=== PATIENT | male | born 1995 | race Hispanic/Latino ===

== ENCOUNTER 2017-08-18 10:45 | Inpatient (IN) | payer SELFPAY ==
[2017-08-18] MEDS ORDERED: Ondansetron ODT 8 MG TAB ONE (13:34)
[2017-08-18] MEDS ORDERED: ISOVUE-370 76%-LOCM 1 ML ONE (13:43)
[2017-08-18 14:53] LABS: #Eosinphils 0.1 thou/uL (0.0-0.7); #Lymphocytes 1.5 thou/uL (1.20-3.40); #Monocytes 0.8 thou/uL (0.11-0.59); #Neutrophils 3.5 thou/uL (1.40-6.50); %Basophils 0.3 % (0.0-1.0); %Eosinophils 0.9 % (0.0-10.0); %Lymphocytes 25.5 % (21.0-51.0); %Monocytes 14.2 % (0.0-10.0); Hematocrit 39.1 % (42.0-52.0); Mean Platelet Volume 7.8 fL (7.4-10.4); Red Blood Cell (RBC) Count 4.81 mill/uL (4.70-6.10); White Blood Cell (WBC) Count 5.9 thou/uL (4.8-10.8)
[2017-08-18 14:57] LABS: Oxyhemoglobin 95.1 % (94.0-97.0); Sodium 135 mmol/L (135-148)
[2017-08-18 14:59] LABS: Mode NC; Vent NO
--- NOTE | 2017-08-18 15:11 | RAD ---
AP VIEW OF CHEST: Date: 08/18/17 HISTORY: Cough. FINDINGS: Comparison made with exams from 05/06/17, 05/08/17, and 05/10/17. AP view of chest demonstrates pulmonary vascular congestion. There is some asymmetric increased densi ty in the right pulmonary vessels compared to the left. Radiographic appearance of the chest is not s ignificantly changed since previous comparison radiographs from 05/08/17 and 05/10/17. No evidence of effusions seen. IMPRESSION: Area of asymmetric right mid lung density, not having significantly changed since the previous exam f rom 05/10/17. POS: [facility]
[2017-08-18 15:16] LABS: ALT (SGPT) 23 U/L (8-55); AST (SGOT) 28 U/L (5-34); Alkaline Phosphatase 61 U/L (40-150); Anion Gap 13 mmol/L (10-20); BUN (Urea Nitrogen) 12 mg/dL (8.9-20.6); Bilirubin, Total 0.5 mg/dL (0.2-1.2); Calc. Creatinine Clearance 0 mL/min (70-130); Calcium 8.4 mg/dL (7.8-10.44); Carbon Dioxide 26 mmol/L (22-29); Chloride 99 mmol/L (98-107); Estimated GFR-MDRD 87; Globulin 3.5 g/dL (2.4-3.5); Magnesium 2.4 mg/dL (1.6-2.6); Protein, Total 7.4 g/dL (6.0-8.3)
--- NOTE | 2017-08-18 15:57 | CT ---
CONTRAST ENHANCED CTA CHEST: Date: 08/18/17 HISTORY: 22-year-old male with history of vomiting, coughing, myalgias, fever. TECHNIQUE: Contrast enhanced CTA of chest performed. 2D and 3D reconstructed images performed on an independent 3D workstation. FINDINGS: Mediastinum demonstrates some mild subcarinal areas of lymph node enlargement. No evidence of filling defects seen in the pulmonary arteries to suggest pulmonary emboli. No evidence of hilar lymphadenop athy seen. Areas of patchy density seen in the right upper lobe, as well as posterior aspect of the left lower l obe compatible with areas of patchy pneumonia. Some mild areas of patchy density also seen in the ant erior aspect of the right lower lobe. Some minimal areas of patchy air space opacity also present in the posterior aspect of the right middle lobe. IMPRESSION: Multiple small areas of multilobar air space opacities concerning for pneumonia. Follow-up images to resolution recommended. POS: [facility]
[2017-08-18] MEDS ORDERED: Ondansetron HCl/PF 4 MG/2 ML Vial IVP PRN (15:58)
[2017-08-18] MEDS ORDERED: Acetaminophen 325 MG TAB PO PRN (15:58)
[2017-08-18] MEDS ORDERED: Senokot 8.6 MG TAB PO PRN (15:58)
[2017-08-18] MEDS ORDERED: Azithromycin 500 MG in Sodium Chloride 0.9% 250 ML 250 ML IVPB SCH ×3 (16:00→21:00)
[2017-08-18] MEDS ORDERED: cefTRIAXone\\ROCEPHIN 1 GM, Syringe 0.4 ML in Sterile Water 9.6 ML SLOW IVP SCH (18:30)
[2017-08-18] MEDS ORDERED: cefTRIAXone\\ROCEPHIN 1 GM in Sodium Chloride 0.9% 100 ML IVPB SCH (18:30)
[2017-08-18 19:38] VITALS: BMI 48.3
[2017-08-18] MEDS: Albuterol Sulfate 2.5 mg/3 ml Neb NEB SCH (20:54)
[2017-08-18] MEDS: Sodium Chloride 0.9% 1,000 ML IV SCH (21:03)
[2017-08-18] MEDS: guaiFENesin ER 600 MG TAB PO SCH (21:05)
[2017-08-18] MEDS: Famotidine 20 MG TAB PO SCH (21:05)
[2017-08-18] MEDS: Benzonatate 100 MG CAP PO SCH (21:05)
--- NOTE | 2017-08-18 21:27 | HP ---
REASON FOR ADMISSION: Pneumonia and SIRS. HISTORY OF PRESENT ILLNESS: The patient gives history of having coughing episodes along with nausea and vomiting along with body aches. This has been ongoing from . He thought he had flu and came to check it out in the ER. Last evening, he had a temperature of 102 degrees at home. This was confirmed with the mom at bedside. He has not taken his flu shot. On arrival here, he has had ches t x-ray and CT angio chest done, which confirms bilateral pneumonia. PAST MEDICAL/SURGICAL HISTORY: History of asthma during childhood, he has grown out of it, history o f patent ductus arteriosus repair done when he was [age] year old, sinus surgery. He has had a fish cher ne removed from his throat by Dr. Esqueda around 10 years back, and morbid obesity. CURRENT MEDICATIONS: None. ALLERGIES: No known drug allergies. PERSONAL HISTORY: Smokes off and on, but not a regular smoker, drinks alcohol on social occasions, b ut does not abuse drugs. 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 FAMILY HISTORY: Mother has history of diabetes and hypertension. He does not know much about his fa ther. REVIEW OF SYSTEMS: The following complete review of systems was negative, unless otherwise mentioned in the HPI or below: Constitutional: Weight loss or gain, ability to conduct usual activities. Skin: Rash, itching. Eyes: Double vision, pain. ENT/Mouth: Nose bleeding, neck stiffness, pain, tenderness. Cardiovascular: Palpitations, dyspnea on exertion, orthopnea. Respiratory: Shortness of breath, wheezing, cough, hemoptysis, fever or night sweats. Gastrointestinal: Poor appetite, abdominal pain, heartburn, nausea, vomiting, constipation, or diarrh ea. Genitourinary: Urgency, frequency, dysuria, nocturia. Musculoskeletal: Pain, swelling. Neurologic/Psychiatric: Anxiety, depression. Allergy/Immunologic: Skin rash, bleeding tendency. PHYSICAL EXAMINATION: GENERAL: The patient is a 22-year-old male, who is not in any acute distress at present. VITAL SIGNS: Blood pressure 114/70, pulse 88 per minute, respiratory rate 18 per minute, temperature 98.6 degrees Fahrenheit, and saturating 95% on room air. NECK: Supple, no elevated JVD. HEENT: Eyes: Extraocular muscles intact, pupils reactive to light. Oral cavity mucous membranes ar e dry. There is mild congestion in the posterior pharynx. No exudates. CARDIOVASCULAR: S1 and S2 heard. Regular rhythm. RESPIRATORY: Air entry 1+ bilateral. Scattered rhonchi plus bilateral. There is scattered wheezes as well bilateral, no rales. ABDOMEN: Soft, bowel sounds heard. No tenderness, rigidity, or guarding. EXTREMITIES: No peripheral edema or calf tenderness. VASCULAR SYSTEM: Peripheral pulses 2+ bilateral, no ischemic ulcerations or gangrene. CENTRAL NERVOUS SYSTEM: No gross focal deficits seen. Patient is alert, awake, oriented well. PSYCHIATRIC: The patient's mood is euthymic. No hallucinations or delusions. LABORATORY DATA AND X-RAY FINDINGS: EKG done shows normal sinus rhythm at 74 beats per minute. Bloo d gas done shows a pH of 7.41, pCO2 of 40, pO2 of 95. Sodium 134, BUN 12, creatinine 1.0, lactic aci d 1.0. Liver enzymes within normal limits. BNP is 25. Albumin is 3.9. Influenza A and B antigens are negative. CT angio chest done shows multiple small areas of multilobar airspace opacities concer alanis for pneumonia. There is no filling defect to suggest pulmonary embolus. D-dimer was 0.27. Whi te count of 5.9, H&H 12 and 39, platelet count is 248, MCV is 81 with 59% neutrophils. CLINICAL IMPRESSION AND PLAN: The patient will be admitted to telemetry for pneumonia, systemic infl ammatory response syndrome. The patient will be placed on azithromycin and ceftriaxone along with al buterol nebulizer q.6 hourly. He will be on normal saline at 100 mL per hour. The patient is obese and has childhood history of asthma as well. He has had prior history of patent ductus arteriosus re pair done. We will obtain an echo with 2D Doppler for LV function as well and wall motion along wit h, also to know about the valvular structures if he has any congenital abnormalities. Blood cultures have been obtained in the ER and we will obtain sputum culture as well. Respiratory viral panel, PC R will be obtained as well. We will continue to closely monitor him for any hemodynamic compromise.
[2017-08-19] MEDS: Albuterol Sulfate 2.5 mg/3 ml Neb NEB SCH ×4 (00:14→19:21)
[2017-08-19] MEDS: Guaifenesin DM 100-10/5 ML UDCUP PO PRN (02:58)
[2017-08-19] MEDS: Sodium Chloride 0.9% 1,000 ML IV SCH ×3 (02:58→21:14)
[2017-08-19 06:27] LABS: Anion Gap 11 mmol/L (10-20); BUN (Urea Nitrogen) 13 mg/dL (8.9-20.6); Calc. Creatinine Clearance 234 mL/min (70-130); Calcium 7.9 mg/dL (7.8-10.44); Carbon Dioxide 26 mmol/L (22-29); Chloride 99 mmol/L (98-107); Estimated GFR-MDRD 89
[2017-08-19 06:34] LABS: Band 4 % (5-11); Hematocrit 36.3 % (42.0-52.0); Neutrophil 55 % (42-75); Red Blood Cell (RBC) Count 4.45 mill/uL (4.70-6.10); White Blood Cell (WBC) Count 5.4 thou/uL (4.8-10.8)
[2017-08-19] MEDS ORDERED: FLU VACC QS2017-18 36 mo. & older 0.5 ML SYRINGE IM ONE (09:00)
[2017-08-19] MEDS: guaiFENesin ER 600 MG TAB PO SCH ×2 (09:25→20:09)
[2017-08-19] MEDS: Benzonatate 100 MG CAP PO SCH ×3 (09:25→20:09)
[2017-08-19] MEDS: Famotidine 20 MG TAB PO SCH ×2 (09:25→20:09)
[2017-08-19] MEDS: Enoxaparin Sodium 40 MG/0.4 ML SYRINGE SC SCH (09:26)
--- NOTE | 2017-08-19 10:59 | PDOC.PN ---
- Subjective Encounter Start Date: 08/19/17 Encounter Start Time: 07:45 Subjective: feels better, no sob -: is amb in hallway - Objective MAR Reviewed: Yes Vital Signs & Weight: Vital Signs (12 hours) Temp Pulse Resp BP Pulse Ox 08/19/17 08:50 98.3 F 82 20 121/58 L 95 08/19/17 08:14 92 L 08/19/17 08:12 78 18 92 L 08/19/17 04:00 97.6 F 72 15 115/57 L 95 08/19/17 02:56 98 08/19/17 00:14 82 18 98 I&O: 08/18/17 08/19/17 08/20/17 06:59 06:59 06:59 Intake Total 1050 Output Total 400 Balance 650 Result Diagrams: 08/19/17 05:14 08/19/17 05:14 Phys Exam - Physical Examination HEENT: PERRLA, moist MMs Neck: no JVD, supple Respiratory: no wheezing, no rales rhonchi++ Cardiovascular: RRR, no significant murmur Gastrointestinal: soft, non-tender, positive bowel sounds Musculoskeletal: no edema, pulses present Neurological: non-focal, moves all 4 limbs Psychiatric: A&O x 3 Dx/Plan (1) PNA (pneumonia) Code(s): J18.9 - PNEUMONIA, UNSPECIFIED ORGANISM Status: Acute Qualifiers: Pneumonia type: due to unspecified organism Laterality: bilateral (2) Obesity Code(s): E66.9 - OBESITY, UNSPECIFIED Status: Chronic Qualifiers: Obesity classification: adult class 3 (BMI >= 40) Body mass index: BMI 45.0 -49.9 (3) SIRS (systemic inflammatory response syndrome) Code(s): R65.10 - SIRS OF NON-INFECTIOUS ORIGIN W/O ACUTE ORGAN DYSFUNCTION Status: Acute - Plan on levaquin -: nebs, gentle iv hydration till am -: dc plan in am -: his meds have been faxed to pharmacy for his mom to pick it today * . Review of Systems - Medications/Allergies Allergies/Adverse Reactions: Allergies Allergy/AdvReac Type Severity Reaction Status Date / Time No Known Drug Allergies Allergy Verified 05/06/17 21:43 Medications: Current Medications Acetaminophen (Tylenol) 650 mg PO Q4H PRN PRN Reason: Headache/Fever or Pain Albuterol Sulfate (Ventolin) 2.5 mg NEB [id number] [facility] Last Admin: 08/19/17 08:12 Dose: 2.5 mg Benzonatate (Tessalon) 100 mg PO TID [facility] Last Admin: 08/19/17 09:25 Dose: 100 mg Enoxaparin Sodium (Lovenox) 40 mg SC 0900 [facility] Last Admin: 08/19/17 09:26 Dose: 40 mg Famotidine (Pepcid) 20 mg PO BID [facility] Last Admin: 08/19/17 09:25 Dose: 20 mg Guaifenesin (Mucinex) 600 mg PO Q12HR [facility] Last Admin: 08/19/17 09:25 Dose: 600 mg Guaifenesin/Dextromethorphan (Robitussin Dm) 15 ml PO Q4H PRN PRN Reason: Cough Last Admin: 08/19/17 02:58 Dose: 15 ml Sodium Chloride (Normal Saline 0.9%) 1,000 mls @ 100 mls/hr IV .Q10H [facility] Last Admin: 08/19/17 02:58 Dose: 1,000 mls Levofloxacin 750 mg/ Device 150 mls @ 100 mls/hr IVPB 2200 [facility] Last Admin: 08/18/17 22:24 Dose: 150 mls Ondansetron HCl (Zofran) 4 mg IVP Q6H PRN PRN Reason: Nausea/Vomiting Senna (Senokot) 2 tab PO HSPRN PRN PRN Reason: Constipation
[2017-08-20] MEDS: Albuterol Sulfate 2.5 mg/3 ml Neb NEB SCH ×2 (03:51→09:50)
[2017-08-20] MEDS: Guaifenesin DM 100-10/5 ML UDCUP PO PRN (04:00)
[2017-08-20] MEDS: Sodium Chloride 0.9% 1,000 ML IV SCH (08:13)
[2017-08-20] MEDS: Enoxaparin Sodium 40 MG/0.4 ML SYRINGE SC SCH (08:14)
[2017-08-20] MEDS: Famotidine 20 MG TAB PO SCH (08:14)
[2017-08-20] MEDS: Benzonatate 100 MG CAP PO SCH (08:14)
[2017-08-20] MEDS: guaiFENesin ER 600 MG TAB PO SCH (08:14)
[2017-08-20 09:05] VITALS: BP 138/85; TEMP 98.1
--- NOTE | 2017-08-20 10:10 | PDOC.PN ---
- Subjective Encounter Start Date: 08/20/17 Encounter Start Time: 06:45 Subjective: feels better, no sob -: is amb and eating well - Objective MAR Reviewed: Yes Vital Signs & Weight: Vital Signs (12 hours) Temp Pulse Resp BP Pulse Ox 08/20/17 09:00 98.1 F 78 16 138/85 95 08/20/17 08:00 98.1 F 78 16 08/20/17 05:36 98.4 F 71 18 131/70 94 L 08/20/17 01:05 98.1 F 72 18 131/78 95 I&O: 08/19/17 08/20/17 08/21/17 06:59 06:59 06:59 Intake Total 1050 2340 Output Total 400 600 Balance 650 1740 Result Diagrams: 08/19/17 05:14 08/19/17 05:14 Phys Exam - Physical Examination HEENT: PERRLA, moist MMs Neck: no JVD, supple Respiratory: no wheezing, no rales Cardiovascular: RRR, no significant murmur Gastrointestinal: soft, non-tender, positive bowel sounds Musculoskeletal: no edema, pulses present Neurological: non-focal, moves all 4 limbs Psychiatric: A&O x 3 Dx/Plan (1) PNA (pneumonia) Code(s): J18.9 - PNEUMONIA, UNSPECIFIED ORGANISM Status: Acute Qualifiers: Pneumonia type: due to unspecified organism Laterality: bilateral (2) Obesity Code(s): E66.9 - OBESITY, UNSPECIFIED Status: Chronic Qualifiers: Obesity classification: adult class 3 (BMI >= 40) Body mass index: BMI 45.0 -49.9 (3) SIRS (systemic inflammatory response syndrome) Code(s): R65.10 - SIRS OF NON-INFECTIOUS ORIGIN W/O ACUTE ORGAN DYSFUNCTION Status: Acute (4) Influenza A Code(s): J10.1 - FLU DUE TO OTH IDENT INFLUENZA VIRUS W OTH RESP MANIFEST Status: Acute - Plan his flu symptoms started on , no tamiflu -: to continue levaquin, alb inh prn -: dc pt home -: he needs outpt sleep study ?clyde * .
== END 2017-08-20 11:06 | disposition home or self-care (01) | DRG 194 ==
LOC: ERS 10:45 → ERHOLD 16:02 → 2NO 18:24 → T4-A 08-19 18:52
PROVIDERS: ADMIT Student in an Organized Health Care Education/Training Program; ATTEND Student in an Organized Health Care Education/Training Program
DX: J10.00 Influenza due to other identified influenza virus with unspecified type of pneumonia (principal); R65.10 Systemic inflammatory response syndrome (SIRS) of non-infectious origin without acute organ dysfunction; Z68.42 Body mass index [BMI] 45.0-49.9, adult; E66.9 Obesity, unspecified; F17.210 Nicotine dependence, cigarettes, uncomplicated; J45.909 Unspecified asthma, uncomplicated
CPT/HCPCS: 36415; 71010; 71275; 80048; 80053; 82805; 83605; 83735; 83880; 85025; 85379; 87040; 87633; 90471; 90682; 93005; 93306; 94640; A4216; G0008; J0456; J0696; J1650; J1956; J7050; J7611; Q2036

== ENCOUNTER 2018-10-25 15:23 | Emergency (ER) | payer BC ==
[~2018-10-25 15:23] MED LIST: ISOVUE-370 76%-LOCM 1 ML ONE
--- NOTE | 2018-10-25 16:32 | RAD ---
CHEST 2 VIEWS: Date: 10/25/18 HISTORY: Dyspnea. FINDINGS: No comparison. Cardiac silhouette is upper limits of normal in size. Pulmonary vasculature is slightly engorged with widespread reticulonodular interstitial prominence. Mediastinum is midline. No lobar consolidation, pneumothorax, or pleural fluid are apparent. IMPRESSION: Borderline cardiomegaly with mild pulmonary vascular congestion. Clinical correlation regarding other signs and symptoms of CHF required. POS: [facility]
[2018-10-25 16:33] LABS: Hemoglobin 10.6 g/dL (12.0-16.0); Mean Corpuscular HGB CONC 31.1 g/dL (32.0-36.0); Mean Corpuscular Volume 70.7 fL (78.0-98.0); Mean Platelet Volume 9.7 fL (7.4-10.4); Platelet Count 266 thou/uL (130-400); RBC Distribution Width 16.2 % (11.5-14.5)
[2018-10-25 16:50] LABS: ALT (SGPT) 33 U/L (8-55); AST (SGOT) 22 U/L (5-34); Albumin 3.8 g/dL (3.5-5.0); Alkaline Phosphatase 69 U/L (40-150); Anion Gap 12 mmol/L (10-20); BUN (Urea Nitrogen) 14 mg/dL (7.0-18.7); Bilirubin, Total 0.3 mg/dL (0.2-1.2); CK (CPK) 143 U/L (29-168); Calc. Creatinine Clearance 0 mL/min (70-130); Calcium 8.7 mg/dL (7.8-10.44); Carbon Dioxide 26 mmol/L (22-29); Chloride 100 mmol/L (98-107); Estimated GFR-MDRD 53; Globulin 3.3 g/dL (2.4-3.5); Glucose 111 mg/dL (70-105); Potassium 4.3 mmol/L (3.5-5.1); Protein, Total 7.1 g/dL (6.0-8.3); Sodium 134 mmol/L (136-145)
[2018-10-25 16:56] LABS: #Eosinphils 0.2 thou/uL (0.0-0.7); #Lymphocytes 1.7 thou/uL (1.20-3.40); #Monocytes 1.1 thou/uL (0.11-0.59); %Basophils 0.4 % (0.0-1.0); %Lymphocytes 19.1 % (21.0-51.0); %Monocytes 12.4 % (0.0-10.0); %Neutrophils 66.1 % (42.0-75.0); Anisocytosis SLIGHT = 6-15 cells (100X) (0-5/hpf); Hypochromia SLIGHT = 6-15 cells (100X) (0-5/hpf); MDiff Complete? YES; Microcytosis SLIGHT = 6-15 cells (100X) (0-5/hpf); Platelet Morphology Comment Appears Adequate
[2018-10-25] MEDS ORDERED: Furosemide 40 MG/4 ML VIAL ONE (19:04)
[2018-10-25] MEDS ORDERED: Furosemide 20 MG/2 ML VIAL ONE (19:43)
--- NOTE | 2018-10-25 21:23 | CT ---
CONTRAST ENHANCED CTA CHEST 10/25/18 HISTORY: Shortness of breath for one day, worst with working. Contrast enhanced CTA chest performed. 2D and 3D reconstructed images performed on an independent 3D workstation. CTA chest demonstrates the thoracic aorta to be unremarkable. FINDINGS/IMPRESSION: No evidence of pulmonary emboli seen. No evidence of mediastinal pathology seen. Moderate bilateral axillary lymphadenopathy is present. No definite evidence of mediastinal or hilar lymphadenopathy seen. There are diffuse areas of air sp maggie opacities in both upper lobes, more prominent on the right than on the left as well as both lower lobes and also some in the lateral aspect of the right middle lobe. This is compatible with extensiv e multilobar air space disease. Differential diagnosis includes pulmonary edema versus pneumonia. Cor relate with history. Multilobar lung areas of air space opacities compatible with pneumonia versus pu lmonary edema. POS: [facility]
== END 2018-10-25 20:56 | disposition home or self-care (01) ==
LOC: EDSEX → MERGE 15:23 → ERS 15:23
DX: J18.9 Pneumonia, unspecified organism (principal); J45.909 Unspecified asthma, uncomplicated; F17.210 Nicotine dependence, cigarettes, uncomplicated; F41.9 Anxiety disorder, unspecified; F32.9 Major depressive disorder, single episode, unspecified
CPT/HCPCS: 36415; 71046; 71275; 80053; 82550; 83880; 84484; 85025; 85379; 87804; 93005; 96374; J1940; J7620

== ENCOUNTER 2022-06-08 23:40 | Inpatient (IN) | payer BC, SELFPAY ==
[2022-06-08] MEDS ORDERED: Sodium Bicarb 50 MEQ/50 ML VIAL ONE (23:58)
[2022-06-09 00:36] LABS: Alcohol Less than 10 mg/dL (Less than 10); CK (CPK) 269 U/L (30-200); Lipase 40 U/L (8-78); Salicylate Less than 8.0 mg/dL (15.0-30.0)
[2022-06-09 00:37] LABS: ALT (SGPT) 27 U/L (8-55); AST (SGOT) 19 U/L (5-34); Albumin 4.2 g/dL (3.5-5.0); Alkaline Phosphatase 72 U/L (40-110); Anion Gap 14 mmol/L (10-20); BUN (Urea Nitrogen) 16 mg/dL (8.9-20.6); Bilirubin, Total 0.4 mg/dL (0.2-1.2); Calc. Creatinine Clearance 0 mL/min (70-130); Calcium 8.7 mg/dL (7.8-10.44); Carbon Dioxide 21 mmol/L (22-29); Chloride 104 mmol/L (98-107); Estimated GFR 84; Globulin 3.7 g/dL (2.4-3.5); Glucose 131 mg/dL (70-105); Potassium 3.4 mmol/L (3.5-5.1); Protein, Total 7.9 g/dL (6.0-8.3); Sodium 136 mmol/L (136-145)
[2022-06-09] MEDS ORDERED: Ondansetron PF 4 MG/2 ML Vial ONE (00:46)
[2022-06-09 01:05] LABS: Hemoglobin 14.8 g/dL (14.0-18.0); Mean Corpuscular HGB CONC 32.3 g/dL (32.0-36.0); Mean Corpuscular Hemoglobin 29.1 pg (27.0-31.0); Mean Corpuscular Volume 90.2 fL (78.0-98.0); Mean Platelet Volume 8.9 fL (7.4-10.4); Platelet Count 225 thou/uL (130-400); RBC Distribution Width 12.6 % (11.5-14.5); Red Blood Cell (RBC) Count 5.09 mill/uL (4.70-6.10); White Blood Cell (WBC) Count 16.2 thou/uL (4.8-10.8)
[2022-06-09 01:06] LABS: Band 3 % (5-11); Lymphocytes 38 % (21-51); MDiff Complete? YES; Monocytes 2 % (0-10); Neutrophil 47 % (42-75); Platelet Morphology Comment Appears Adequate; RBC Morphology Normal; Reactive Lymphocytes 10 % (0-10)
[2022-06-09] MEDS ORDERED: DEXTROSE 5% IV SCH (01:30)
[2022-06-09] MEDS ORDERED: Acetylcysteine 20% (200mg/mL) 15,000 MG in Dextrose 5% in Water 200 ML IV SCH (01:30)
[2022-06-09] MEDS ORDERED: WATER IV SCH (01:30)
[2022-06-09] MEDS ORDERED: ACETYLCYSTEINE IV SCH (01:30)
[2022-06-09 01:40] LABS: SARS-CoV-2 NAA Rapid Test Not Detected (NotDetected)
[2022-06-09] MEDS ORDERED: Ondansetron PF 4 MG/2 ML Vial IVP PRN (02:45)
[2022-06-09] MEDS ORDERED: Ondansetron ODT 4 MG TAB PO PRN (02:45)
[2022-06-09] MEDS ORDERED: diphenhydrAMINE 25 MG CAP PO PRN (02:45)
[2022-06-09] MEDS ORDERED: diphenhydrAMINE 50 MG/ML VIAL IVP PRN (02:45)
[2022-06-09] MEDS ORDERED: Acetylcysteine 20% (200mg/mL) 5,000 MG in Dextrose 5% in Water 500 ML IV SCH (03:00)
[2022-06-09] MEDS ORDERED: Dextrose 50% Abboject 50 ML SYRINGE SLOW IVP PRN (03:05)
[2022-06-09] MEDS ORDERED: Dextrose 5% in Water 1,000 ML IV PRN (03:05)
[2022-06-09 03:06] VITALS: BMI 53.1
[2022-06-09] MEDS: Sodium Bicarbonate 150 MEQ in Dextrose 5% in Water 1,000 ML IV SCH ×2 (03:20→06:22)
[2022-06-09 05:20] LABS: #Lymphocytes 1.3 thou/uL (1.20-3.40); #Monocytes 0.6 thou/uL (0.11-0.59); #Neutrophils 10.8 thou/uL (1.40-6.50); %Basophils 0.4 % (0.0-1.0); %Eosinophils 0.2 % (0.0-10.0); %Lymphocytes 9.9 % (21.0-51.0); %Neutrophils 84.6 % (42.0-75.0); Mean Corpuscular HGB CONC 32.5 g/dL (32.0-36.0); Mean Corpuscular Hemoglobin 29.6 pg (27.0-31.0); Mean Corpuscular Volume 91.1 fL (78.0-98.0); Mean Platelet Volume 8.4 fL (7.4-10.4); Platelet Count 201 thou/uL (130-400); RBC Distribution Width 12.5 % (11.5-14.5); Red Blood Cell (RBC) Count 5.08 mill/uL (4.70-6.10); White Blood Cell (WBC) Count 12.8 thou/uL (4.8-10.8)
[2022-06-09 05:23] LABS: Lactic Acid 1.5 mmol/L (0.5-2.2)
[2022-06-09 05:28] LABS: ALT (SGPT) 64 U/L (8-55); AST (SGOT) 70 U/L (5-34); Albumin 4.1 g/dL (3.5-5.0); Alkaline Phosphatase 61 U/L (40-110); Anion Gap 13 mmol/L (10-20); BUN (Urea Nitrogen) 14 mg/dL (8.9-20.6); Bilirubin, Total 0.5 mg/dL (0.2-1.2); Calc. Creatinine Clearance 225 mL/min (70-130); Calcium 8.4 mg/dL (7.8-10.44); Carbon Dioxide 22 mmol/L (22-29); Chloride 104 mmol/L (98-107); Estimated GFR 91; Globulin 3.7 g/dL (2.4-3.5); Glucose 162 mg/dL (70-105); Potassium 3.5 mmol/L (3.5-5.1); Protein, Total 7.8 g/dL (6.0-8.3); Sodium 135 mmol/L (136-145)
[2022-06-09] MEDS ORDERED: Acetylcysteine 20% (200mg/mL) 10,000 MG in Dextrose 5% in Water 1,000 ML IV SCH (07:00)
[2022-06-09 07:10] LABS: Bacteria/HPF None Seen HPF (None Seen); Bilirubin Negative (Negative); Blood, Urine Negative (Negative); Clarity Clear (Clear); Glucose, Urine (Dipstick) Normal (Negative); Ketone, Urine 10 mg/dL (Negative); Leukocyte Negative Leu/uL (Negative); Nitrite Negative (Negative); Protein, Urine (Dipstick) 20 mg/dL (Neg-Trace); RBC/HPF 0-3 HPF (0-3); Specific Gravity, Urine 1.022 (1.002-1.036); Squamous Epithelial 0-3 HPF (0-3); Urobilinogen Normal mg/dL (Less than 2); WBC/HPF 0-3 HPF (0-3); pH, Urine 8.5 (5.0-9.0)
[2022-06-09] MEDS ORDERED: Enoxaparin Sodium 40 MG/0.4 ML SYRINGE SC SCH (09:00)
[2022-06-09 09:07] LABS: PTT 25.8 sec (22.9-36.1)
[2022-06-09 09:08] LABS: INR-International Normal Ratio 1.1; Prothrombin Time 14.3 sec (12.0-14.7)
[2022-06-09 10:49] LABS: Hemoglobin A1c 5.5 % (4.0-6.0)
[2022-06-09 11:16] LABS: Cardiac Risk 3.7 (Less than 4.5)
[2022-06-09 11:32] LABS: Amphetamine Not Detected (NotDetected); Barbiturates Screen Not Detected (NotDetected); Benzodiazepine Screen Detected (NotDetected); Cocaine Metabolite Screen Not Detected (NotDetected); Methadone Not Detected (NotDetected); Methamphetamine Not Detected (NotDetected); Opiate Screen Not Detected (NotDetected); Oxycodone Screen Not Detected (NotDetected); Phencyclidine (PCP) Not Detected (NotDetected); THC/Cannabinoid Screen Not Detected (NotDetected); Tricyclic Screen Not Detected (NotDetected)
[2022-06-09] MEDS: Enoxaparin Sodium 60 MG/0.6 ML SYRINGE SC SCH (20:10)
[2022-06-09 22:05] LABS: INR-International Normal Ratio 1.1
[2022-06-09 22:20] LABS: ALT (SGPT) 52 U/L (8-55); AST (SGOT) 24 U/L (5-34); Acetaminophen Less than 10.0 mcg/mL (10.0-30.0); Albumin 4.1 g/dL (3.5-5.0); Alkaline Phosphatase 60 U/L (40-110); Bilirubin, Direct 0.2 mg/dL (0.1-0.3); Bilirubin, Total 0.6 mg/dL (0.2-1.2); Protein, Total 7.7 g/dL (6.0-8.3)
[2022-06-10] MEDS: Enoxaparin Sodium 60 MG/0.6 ML SYRINGE SC SCH ×2 (08:19→20:38)
[2022-06-10 20:36] VITALS: BP 160/95; TEMP 98
[2022-06-12] MEDS ORDERED: FLU VACC QS2022-23(6MOS UP)/PF 60 MCG/0.5 ML SYRINGE IM ONE (09:00)
== END 2022-06-11 01:45 | DRG 918 ==
LOC: ERS 23:40 → IMCU/EMU 06-09 01:35 → 2NO 06-10 18:05
PROVIDERS: ADMIT Family Medicine; ATTEND Family Medicine
DX: T39.1X2A Poisoning by 4-Aminophenol derivatives, intentional self-harm, initial encounter (principal); Z68.43 Body mass index [BMI] 50.0-59.9, adult; E11.9 Type 2 diabetes mellitus without complications; J45.909 Unspecified asthma, uncomplicated; E87.6 Hypokalemia; E66.01 Morbid (severe) obesity due to excess calories; F41.9 Anxiety disorder, unspecified; F32.A Depression, unspecified; F17.210 Nicotine dependence, cigarettes, uncomplicated; T43.592A Poisoning by other antipsychotics and neuroleptics, intentional self-harm, initial encounter; T42.4X2A Poisoning by benzodiazepines, intentional self-harm, initial encounter; T42.6X2A Poisoning by other antiepileptic and sedative-hypnotic drugs, intentional self-harm, initial encounter; Z20.822 Contact with and (suspected) exposure to COVID-19; Y92.9 Unspecified place or not applicable
CPT/HCPCS: 36415; 71045; 71046; 80053; 80061; 80143; 80306; 80307; 81001; 82550; 83036; 83605; 83690; 84443; 84484; 85025; 85610; 85730; 93005; 93010; 96374; 96375; J0132; J1650; J2405; J7070; U0002